=== PATIENT | male | born 1935 | race Caucasian/White ===

== ENCOUNTER → 2017-01-10 | Day surgery (SDC) | payer MEDICARE, BC ==
[~2017-01-10] MED LIST: ACEON PO; ACETAMINOPHEN650 M1 PO; AMARYL2 MG PO; AMLODIPINE BES2.5 MG PO; ASPIRIN PO; ASPIRIN81 M2 PO; BENICAR HCT 40-1 TAB PO; CARDIZEM SR PO; CARVEDILOL3.125 MG PO; CENTRUM PO; CERTAGEN PO; CLONIDINE PO; COREG PO; CRESTOR PO; EXFORGE PO; FINASTERIDE5 MG PO; FLAGYL PO; HYDROCODONE-IB1 EACH PO; HYTRIN PO; LISINOPRIL-HCTZ1 T14 PO; NORMODYNE PO; NOVOLOG7030 SUBQ; OMEPRAZOLE40 M1 PO; PANTOPRAZOLE SO40 MG PO; PROBIOTIC1 EAC1 PO; PROSCAR5 MG PO; TEKTURNA; TEKTURNA PO; TETRACYCLINE PO; TYLENOL325 M1 PO; VICOPROFEN 200-1 TAB PO; VITAMIN E400 UNI2 PO; ZESTORETIC 20-1 EAC1 PO; [UNRECOGNIZED DRUG - OTHER] PO; [UNRECOGNIZED DRUG - OTHER] PO
--- NOTE | ~2017-01-10 | OR ---
Unit #: [id number] #: [id number] Patient: MINI MCDANIELS [id number] [address] [address] [id number] MR#: [id number] NAME: MINI MCDANIELS. ROOM: Date of Procedure: 01/10/2017 Admission Date: 01/10/2017 Surgeon: José Machuca M.D. : 1935 Attending Physician: José Machuca M.D. Primary Care Physician: Yasmani Kirby M.D. OPERATIVE REPORT PROCEDURES PERFORMED Esophagogastroduodenoscopy with biopsy and esophagogastroduodenoscopy with balloon dilatation. INDICATIONS FOR PROCEDURE An 81-year-old gentleman with recent history of large ulcers as well as severe gastritis with H pylori. Now with dysphagia, on PPIs, undergoing evaluation for ulcer healing as well as possible dilation. MEDICATIONS Monitored anesthesia. POSTOPERATIVE FINDINGS 1. Esophageal ring dilated with a balloon to 20 mm. 2. Diffuse gastritis, moderate to severe. Biopsies were taken. 3. Previously documented duodenal ulcers have resolved. PLAN Continue PPI therapy and reflux precautions. Follow up on the pathology report. DESCRIPTION OF PROCEDURE The patient was explained of the procedure, risks, and benefits along with the risks and benefits of anesthesia. He was brought to the endoscopy room. Propofol anesthesia was given. Bite block was placed. The scope was passed down the mouth into esophagus, stomach, duodenum, and distal duodenum. Findings as described. Biopsies were taken. Gently, I pulled the scope out. Dilation was carried out of the esophagus at this point to 20 mm. He tolerated it well. No major complications were seen. Dictated by... Radha Elliott/kassy TD: 01/10/2017 13:37 JOB #: [id number] Unit #: [id number] #: [id number] Patient: MINI MCDANIELS OPERATIVE REPORT Page 1 of 1 X José Machuca MD X PROCEDURE OPERATIVE NOTE
== END | disposition home or self-care (01) ==
LOC: COPS 12-06 15:00
DX: K29.50 Unspecified chronic gastritis without bleeding (principal); K31.89 Other diseases of stomach and duodenum; K22.2 Esophageal obstruction; K21.9 Gastro-esophageal reflux disease without esophagitis; I25.10 Atherosclerotic heart disease of native coronary artery without angina pectoris; E11.9 Type 2 diabetes mellitus without complications; Z95.5 Presence of coronary angioplasty implant and graft; Z98.890 Other specified postprocedural states; Z79.82 Long term (current) use of aspirin; Z88.0 Allergy status to penicillin; Z88.8 Allergy status to other drugs, medicaments and biological substances; Z91.048 Other nonmedicinal substance allergy status; Z79.891 Long term (current) use of opiate analgesic; Z79.84 Long term (current) use of oral hypoglycemic drugs
CPT/HCPCS: 82947; 88305; 88312